=== PATIENT | male | born 1950 | race Caucasian/White ===

== ENCOUNTER → 2017-09-20 | Outpatient (CLI) | payer OTHER, BC ==
[~2017-09-20] MED LIST: ASPI-587 PO; BUTA1TAB46 PO; CETI10CA12 PO; DOXY100C2 PO; FLUT16SP22; LISINOPRIL PO; LOVA20TA2 PO; ONDA-42 SL; ORPH100T PO
--- NOTE | 2017-09-20 12:40 | Diagnostic Imaging Report ---
PROCEDURE: MR imaging left lower extremity without contrast. TECHNIQUE: Multiplanar, multisequence non contrast enhanced MR imaging of the left lower extremity was accomplished. INDICATION: Pain, unable to flex foot. FINDINGS: There are no prior studies available for comparison. The STIR sagittal series shows a severe but not complete tear of the midportion of the Achilles tendon. There is a roughly 2 cm area of abnormal signal with associated soft tissue edema in this area. The attachment of the Achilles tendon to the calcaneus seems undisturbed. There is generalized soft tissue edema about the ankle joint. The other major ligaments and tendons seem to be intact. There is no abnormal signal arising from the osseous structures to suggest bone edema or fracture. There is a fairly well-circumscribed 1.8 x 1.9 cm area of altered signal within the body of the calcaneus. This is of uncertain etiology but unlikely to be related to an acute injury. The talar dome is smooth and there is no sign of osteochondritis dissecans. IMPRESSION: 1. There is a severe but partial tear of the Achilles tendon. There is also generalized soft tissue edema about the tear and the ankle joint itself. 2. There is no acute abnormality identified otherwise. Dictated by: Dictated on workstation # [id number]
== END ==
LOC: RAD 07:03
PROVIDERS: ATTEND Nurse Practitioner Family
DX: S96.912A Strain of unspecified muscle and tendon at ankle and foot level, left foot, initial encounter (principal); W10.9XXA Fall (on) (from) unspecified stairs and steps, initial encounter

== ENCOUNTER → 2017-10-24 | Outpatient (CLI) | payer BC, OTHER ==
--- NOTE | 2017-10-24 10:02 | Diagnostic Imaging Report ---
PROCEDURE: US left lower extremity venous. TECHNIQUE: Multiple real-time grayscale images were obtained over the left lower extremity in various projections. Additional duplex Doppler and color Doppler images were also obtained. INDICATION: Left posterior tibial vein thrombus noted two weeks ago at an outside facility. Study is performed for followup. No prior studies are available for comparison. The left common femoral, superficial femoral and popliteal veins are widely patent. The thrombus is identified in the proximal and mid portion of the posterior tibial veins. Distally one posterior tibial vein is thrombosed and the other is patent. There appears to be thrombosis of the superficial vein as well at the mid calf. No fluid collections are seen. IMPRESSION: No evidence of femoral-popliteal DVT. There continues to be thrombus within the posterior tibial vein, as described. Dictated by: Dictated on workstation # [id number]
== END ==
LOC: RAD 07:29
PROVIDERS: ATTEND Nurse Practitioner Family
DX: I82.442 Acute embolism and thrombosis of left tibial vein (principal)

== ENCOUNTER 2018-04-05 05:34 | Outpatient (CLI) | payer BC ==
[~2018-04-05] VITALS: Ht 182.9 cm; Wt 106.6 kg
[2018-04-05] MEDS ORDERED: ASPI-999 PO (08:27)
[2018-04-05] MEDS ORDERED: SIMV20TA3 PO (08:27)
[2018-04-05] MEDS ORDERED: LISI-552 PO (08:27)
[2018-04-05] MEDS ORDERED: FENO45CA2 PO (08:27)
== END 2018-04-05 08:30 | disposition home or self-care (01) ==
LOC: PREOP 05:34
PROVIDERS: ATTEND Surgery
DX: Z01.818 Encounter for other preprocedural examination (principal)

== ENCOUNTER 2018-04-08 11:39 | Day surgery (SDC) | payer BC ==
[~2018-04-08] VITALS: Ht 182.9 cm; Wt 106.6 kg
[~2018-04-08 11:39] MED LIST changes: +ASPI-999 PO; +FENO45CA2 PO; +LISI-552 PO; +SIMV20TA3 PO
[2018-04-08] MEDS ORDERED: LACTATED RINGERS 1,000 ML IV ONE (12:14)
[2018-04-08 12:25] VITALS: BP 137/82
[2018-04-08] MEDS ORDERED: LACTATED RINGERS 1,000 ML IV STA (13:00)
[2018-04-08] MEDS ORDERED: MIDAZOLAM 2 MG/2 ML (VERSED) VIAL ONE (13:56)
[2018-04-08] MEDS ORDERED: PROPOFOL INJECTION 50 ML IV ONE (13:57)
[2018-04-08 15:30] VITALS: BP 117/66
--- NOTE | 2018-04-08 15:51 | Progress Note-Post Operative ---
Post-Operative Progess Note Surgeon (s)/Car Salter (s) Surgeon CARYL VARGAS DO Car Salter: KRISTY JenkinsII Pre-Operative Diagnosis Screening Colonoscopy, Lower abd pain Post-Operative Diagnosis Polyps Diverticula Int hemorrhoids Procedure & Operative Findings Date of Procedure 04/08/18 Procedure Performed/Findings Colon with snare Colon with hot bx Anesthesia Type IV sedation by DYER ASSISTANT Estimated Blood Loss Estimated blood loss (mL): none Specimens/Packing Specimens Removed 2 ascending colon polyp Transverse colon polyp CARYL VARGAS DO Apr 08, 2018 15:51
--- NOTE | 2018-04-08 15:52 | Endoscopy Discharge Instruct ---
Endo Procedure/Findings Findings 1.: Polyp 2.: Diverticulosis 3.: Internal Hemorrhoids Discharge Instructions - Activity: You might feel a little sleepy until tomorrow. This is due to the medicine you received to relax you. Until tomorrow, you should: NOT drive a car, operate machinery or power tools. NOT drink any alcoholic beverages. NOT make any important decisions or sign importortant papers. Do not return to work until tomorrow, unless otherwise instructed. Resume previous activities tomorrow. Diet: Start by taking liquids. If you tolerate liquids, advance to solid food. make an appointment for one week Notify Physician - If you experience excessive bleeding, unusual abdominal pain, fever, or chest pain, contact your doctor immediately. Follow-Up: - I have received and understand the above instructions and will call my doctor if I have any further questions. Patient Signature Date Nurse Signature Other (Relationship) CARYL VARGAS DO Apr 08, 2018 15:52
[2018-04-08 15:54] VITALS: BP 146/86
[2018-04-08 16:10] VITALS: BP 146/86
--- NOTE | 2018-04-08 16:15 | Anesthesia-General Post-Op ---
MAC Patient Condition Mental Status/LOC: Same as Preop Cardiovascular: Satisfactory Nausea/Vomiting: Absent Respiratory: Satisfactory Pain: Controlled Complications: Absent Post Op Complications Complications None Follow Up Care/Instructions Patient Instructions None needed. Anesthesiology Discharge Order Discharge Order Patient is doing well, no complaints, stable vital signs, no apparent adverse anesthesia problems. No complications reported per nursing. DIETER LEE CRNA Apr 08, 2018 16:15
--- NOTE | 2018-04-09 01:38 | OPERATIVE REPORT ---
DATE OF SERVICE: PREOPERATIVE DIAGNOSIS: Screening colonoscopy, lower abdominal pain. POSTOPERATIVE DIAGNOSES: 1. Colon polyps. 2. Diverticula. 3. Internal hemorrhoids. PROCEDURES: 1. Colonoscopy with snare polypectomy. 2. Colonoscopy with hot biopsy. SURGEON: Tae Abdul DO. HUMAN RESOURCES CLERK: viktoria Jenkins student 3. ANESTHESIA: IV sedation by CYLINDER HEAD ASSEMBLER. SPECIMENS: Two polyps in the ascending colon and one larger polyp in the transverse colon. BLOOD LOSS: None. FLUIDS: Per anesthesia. POSTOPERATIVE CONDITION: Stable. INDICATION FOR PROCEDURE: The patient is a 67-year-old male who said it has been a while that he had a colonoscopy and he has had some lower abdominal pain and needs a screening. FINDINGS: The patient has two polyps in the ascending colon and one polyp in transverse colon. He also has some diverticula and some internal hemorrhoids. PROCEDURE NOTE: After informed consent was obtained, the patient was brought to the endoscopy suite and placed in the bed in left lateral decubitus position. He was administered IV sedation by the CYLINDER HEAD ASSEMBLER who then monitored his vitals the entire time, heart rate, blood pressure and pulse ox and the scope was inserted. On the way in, he noted some diverticula took picture of this and then able to get all the way to cecum, took picture of appendiceal orifice, noted the ileocecal valve and then slowly withdrew the scope insufflating to look circumferentially at the young, looking at the cecum and then just outside the cecal cap in the ascending colon, saw two small polyps. I elected to get these with hot biopsies because they were flat. I was able to get them and then continued up the ascending colon to the hepatic flexure and then just into the transverse colon, saw a large polyp, elected to do a snare polypectomy to remove this en bloc. Able to remove this, suction this up. We sent to pathology. Continued down the transverse colon to the splenic flexure and then into the descending colon. The patient also had some diverticula on the right side and then again saw them in the descending colon and sigmoid colon. Continued down through the sigmoid colon into the rectum, retroflexed in the rectal vault, saw some minimal internal hemorrhoids, took a picture of this and then removed the scope. The patient tolerated the procedure. He was recovered in endoscopy. Job ID: [id number] DocumentID: [id number] Dictated Date: 04/08/2018 15:56:05 Pasteurizing Machine Operator Date: 04/09/2018 01:38:02 Dictated By: DO GEOVANNA PEREZ
== END 2018-04-08 16:10 | disposition home or self-care (01) ==
LOC: ENDO 11:39
PROVIDERS: ATTEND Surgery
DX: Z12.11 Encounter for screening for malignant neoplasm of colon (principal); D12.3 Benign neoplasm of transverse colon; K63.89 Other specified diseases of intestine; K57.30 Diverticulosis of large intestine without perforation or abscess without bleeding; K64.8 Other hemorrhoids; I10 Essential (primary) hypertension; E78.5 Hyperlipidemia, unspecified; Z86.73 Personal history of transient ischemic attack (TIA), and cerebral infarction without residual deficits; Z79.899 Other long term (current) drug therapy; Z79.82 Long term (current) use of aspirin

== ENCOUNTER 2021-07-02 04:57 | Emergency (ER) | payer BC ==
[~2021-07-02] VITALS: Ht 182.9 cm; Wt 106.6 kg
[~2021-07-02 04:57] MED LIST changes: -LISI-552 PO; +LISI20TA26 PO; +SIMV20TA26 PO; -SIMV20TA3 PO
--- NOTE | 2021-07-02 07:27 | ED Neck-Back Pain/Injury ---
General Chief Complaint: Head/Cervical Problems Stated Complaint: PAIN RT SHOULDER BLADE & NECK Nursing Triage Note: Pt arrives via POV from home for c/o right neck pain that radiates to the right upper back; onset three weeks but worsening over the last three days. Pt denies known injury or other causes. Pt ambulatory on arrival, denies incontinence. Source of Information: Patient, Spouse Exam Limitations: No Limitations History of Present Illness Date Seen by Provider: Jul 02, 2021 Time Seen by Provider: 07:00 Initial Comments Patient and his present to the ER by private conveyance with chief complaint of about 2 to 3 weeks of progressively worsening pain that has become unbearable in the last 2 to 3 days. He has not seen his primary care doctor yet. He did go to a chiropractor yesterday and did not feel he got a lot of relief. He is not on steroids. Has been using ibuprofen 400 mg every 6 hours and Tylenol 650 mg every 6 hours. He is not diabetic nor does he have any heart issues. His pain is in his right back at the mid level of the scapula and rad iates slightly to the right flank. His muscles are in spasm. He is not on muscle relaxants. He says he has had this in the past and had to spend the day in the hospital for pain management. He follows with Steven Ash MD. pain is better while he is up moving around working but when he sits down or lays still it is more noticeable keeps him from getting good sleep. No history of trauma. No history of imaging. He was referred in the past for this pain to a neurologist who worked him up and told him that he had carpal tunnel syndrome but no other spinal involvement. Allergies and Home Medications Allergies Coded Allergies: No Known Drug Allergies (Unverified , 04/05/18) Patient Home Medication List Home Medication List Reviewed: Yes Aspirin (Aspirin) 81 Mg Tab.chew, 81 MG PO DAILY, (Reported) Entered as Reported by: LINDSAY MORALES on 04/05/18826 Fenofibric Acid (Choline) (Fenofibric Acid) 45 Mg Capsule.dr, 45 MG PO DAILY, (Reported) Entered as Reported by: LINDSAY MORALES on 04/05/18826 Lisinopril (Lisinopril) 20 Mg Tablet, 20 MG PO DAILY, (Reported) Entered as Reported by: LINDSAY MORALES on 04/05/18826 Simvastatin (Simvastatin) 20 Mg Tablet, 20 MG PO DAILY, (Reported) Entered as Reported by: LINDSAY MORALES on 04/05/18826 Review of Systems Constitutional: No chills, No fever EENTM: No hearing loss, No ear pain Respiratory: No cough, No short of breath Cardiovascular: No chest pain, No edema Gastrointestinal: No abdominal pain, No nausea All Other Systems Reviewed Negative Unless Noted: Yes Past Hjkrsni-Cjergf-Taljme Hx Patient Social History Tobacco Use?: No Use of E-Cig and/or Vaping dev: No Substance use?: No Alcohol Use?: No Pt feels they are or have been: No Immunizations Up To Date Tetanus Booster (TDap): Less than 5yrs Influenza Vaccine Up-to-Date: Yes; Up-to-Date COVID19 Vaccine Stile Ripsaw Operator: Affine Seasonal Allergies Seasonal Allergies: Yes Past Medical History Appendectomy Pneumonia Currently Using CPAP: No Currently Using BIPAP: No High Cholesterol, Hypertension TIA Reproductive Disorders: No Sexually Transmitted Disease: No HIV/AIDS: No Tinnitis Loss of Vision: Denies Hearing Impairment: Denies Adverse Reaction/Blood Tranf: No Family Medical History Orthostatic hypotension 19 FATHER (FATHER FELL AT HOME AND 2 DAYS LATER) Physical Exam Vital Signs Vital Signs - First Documented 07/02/21 06:35 Temp 36.8 Pulse 75 Resp 18 B/P (MAP) 132/72 (92) Pulse Ox 98 O2 Delivery Room Air Capillary Refill : Less Than 3 Seconds Height, Weight, BMI Height: 6'0.00" Weight: 235lbs. 0.0oz. 106.568954oa; 31.00 BMI Method:Stated General Appearance: WD/WN, Mild Distress HEENT: PERRL/EOMI, Pharynx Normal, Moist Mucous Membranes Neck: Full Range of Motion, Normal Inspection Cardiovascular: Regular Rate, Rhythm, No Edema Respiratory: No Accessory Muscle Use, No Respiratory Distress Back: Normal Inspection, No Vertebral Tenderness, Muscle Spasm (Right trapezius and paraspinal muscles.), Other (Point tenderness at the level of T8-T9 paraspinal muscles about 2 to 3 cm lateral to the spine.) Extremity: Normal Capillary Refill, Normal Inspection Neurologic/Psychiatric: Alert, Oriented x3 Procedures/Interventions Progress Point tenderness injection for myofascitis on the right scapula around the level of T8. Half cc of half percent Marcaine without epinephrine mixed with 1 cc 40 mg/mL Depo-Medrol. We used alcohol to clean the site and Z track method to apply the medication through a 25-gauge 1-1/2 inch needle. We were not able to aspirate any blood back before injecting. Patient tolerated procedure well. Sterile bandage was applied Progress/Results/Core Measures Results/Orders My Orders Orders - ARNAV HERNANDEZ Methylprednisolone Acetate Inj (Depo-Med (07/02/21 07:30) Bupivacaine 0.5% Injection (Sensorcaine (07/02/21 07:30) Vital Signs/I&O 07/02/21 06:35 Temp 36.8 Pulse 75 Resp 18 B/P (MAP) 132/72 (92) Pulse Ox 98 O2 Delivery Room Air Blood Pressure Mean: 92 Progress Progress Note : Time: 07:24 Progress Note Toradol shot for immediate pain, will do a point tenderness injection for mild fasciitis with nerve impingement in his thoracic spine. Follow-up 1 to 2 weeks with primary care for physical therapy or chiropractic. Departure Impression Primary Impression: Myofascitis Additional Impression: Thoracic nerve root impingement Disposition: 01 HOME, SELF-CARE Condition: Stable Departure-Patient Inst. Decision time for Depature: 07:33 Referrals: STEVEN ASH MD (PCP/Family) Primary Care Physician Patient Instructions: Radiculopathy (DC) Add. Discharge Instructions: Your back pain is caused by inflammation impinging on the nerve. You should see improvement over the next week with the steroid. Use the cyclobenzaprine/Flexeril muscle relaxant every 8 hours as necessary. Will cause some drowsiness. Naproxen 1 tablet twice a day for the next 1 to 2 weeks until your pain goes away. Do not use ibuprofen and naproxen together as they are the same family of drug. You may continue to use Tylenol 650 mg every 6 hours as necessary for breakthrough pain. You may use topical creams such as icy hot, Biofreeze, Blue emu etc. Heat, massage, chiropractors and physical therapy all can be beneficial. If not seeing improvement in 1 to 2 weeks and follow-up with your primary care doctor for reevaluation. Promptly return to the ER if you experience loss of control of bowel or bladder, numbness or weakness or other worrisome symptoms. All discharge instructions reviewed with patient and/or family. Voiced understanding. Scripts Naproxen (Naprosyn) 500 Mg Tablet 500 MG PO BID for 14 Days, #30 TAB 0 Refills Prov: ARNAV HERNANDEZ 07/02/21 Cyclobenzaprine HCl (Cyclobenzaprine HCl) 10 Mg Tablet 10 MG PO Q8H PRN for SPASMS, #20 TAB 0 Refills Prov: ARNAV HERNANDEZ 07/02/21 Copy Copies To 1: STEVEN ASH MD, TITUS J Jul 02, 2021 07:27
[2021-07-02] MEDS ORDERED: BUPIVACAINE 0.5% 30 ML (SENSORCAINE) VIAL INJ ONE (07:30)
[2021-07-02] MEDS ORDERED: KETOROLAC 60 MG/2 ML VIAL IM ONE (07:30)
[2021-07-02] MEDS ORDERED: methylPREDNISolone 40 MG/ML (DEPO MEDROL) VIAL IM ONE (07:30)
[2021-07-02] MEDS ORDERED: NAPR-1071 PO (07:35)
[2021-07-02] MEDS ORDERED: CYCL10TA25 PO (07:35)
[2021-07-02 07:40] VITALS: BP 132/72
== END 2021-07-02 07:40 | disposition home or self-care (01) ==
LOC: EDUNIT# 04:57 → ER 05:02
DX: M60.9 Myositis, unspecified (principal); M54.14 Radiculopathy, thoracic region
CPT/HCPCS: 99284

== ENCOUNTER → 2021-07-28 | Outpatient (CLI) | payer BC ==
[~2021-07-28] MED LIST changes: +CYCL10TA25 PO; +NAPR-1071 PO
--- NOTE | 2021-07-28 17:01 | Diagnostic Imaging Report ---
INDICATION: Neck and chest pain. COMPARISON: 09/26/2014. EXAMINATION: Frontal and lateral views of the chest. FINDINGS: Clear lungs, bilaterally. The heart is normal. There is no pneumothorax but osseous structures are normal. IMPRESSION: Negative chest. Dictated by: Dictated on workstation # [id number]
--- NOTE | 2021-07-28 17:03 | Diagnostic Imaging Report ---
INDICATION: Thoracic pain. COMPARISON: Radiographs from the same date as well as from 09/26/2014. TECHNIQUE: Three radiographs of the thoracic spine dated July 28, 2021. FINDINGS: Grade 1 anterolisthesis of C4 on C5 is identified with no anterolisthesis or retrolisthesis within the thoracic spine, itself. Vertebral body heights within the thoracic spine are well maintained. Mild multilevel disc space height loss is noted without severe disc space height loss. Multilevel anterior osteophyte formation, greatest within the lower cervical spine. No acute fracture or dislocation. No suspicious radiopaque foreign body. No large-volume pleural effusion. IMPRESSION: 1. No acute osseous abnormality with mild to moderate multilevel degenerative changes. 2. Grade 1 anterolisthesis of C4 on C5 incidentally noted. Dictated by: Dictated on workstation # [id number]
== END ==
LOC: RAD 15:40
PROVIDERS: ATTEND Family Medicine
DX: M47.814 Spondylosis without myelopathy or radiculopathy, thoracic region (principal); M43.14 Spondylolisthesis, thoracic region; M54.2 Cervicalgia; R07.9 Chest pain, unspecified
CPT/HCPCS: 71046; 72072

== ENCOUNTER 2021-09-07 14:37 | Outpatient (RCR) | payer BC | END 2021-09-10 | PROVIDERS: ATTEND Family Medicine | DX: M79.604 Pain in right leg (principal); R10.31 Right lower quadrant pain ==

== ENCOUNTER → 2021-09-15 | Outpatient (CLI) | payer BC ==
--- NOTE | 2021-09-15 14:46 | Diagnostic Imaging Report ---
INDICATION: RT HIP AND GROIN PAIN. COMPARISON: None. FINDINGS: Two views of the right hip were obtained and show no fractures, dislocations, or other acute bony abnormalities. Joint spaces are well maintained throughout. The soft tissues appear unremarkable. No radiopaque foreign bodies are identified. IMPRESSION: Unremarkable radiographic exam of the right hip. Dictated by: Dictated on workstation # [id number]
--- NOTE | 2021-09-15 14:48 | Diagnostic Imaging Report ---
INDICATION: Fall. Back pain. COMPARISON: None FINDINGS: Frontal and lateral views of the lumbar spine were obtained. Alignment and vertebral heights are maintained. There is no fracture or destructive process. Moderate multilevel degenerative disease is noted in the lumbar spine. Limited views of the abdomen demonstrate nonobstructive bowel gas pattern. IMPRESSION: 1. No acute fracture or dislocation of the lumbar spine. 2. Moderate multilevel degenerative changes. Dictated by: Dictated on workstation # [id number]
== END ==
LOC: RAD 13:56
PROVIDERS: ATTEND Family Medicine
DX: M47.816 Spondylosis without myelopathy or radiculopathy, lumbar region (principal)
CPT/HCPCS: 72100; 73502

== ENCOUNTER 2021-10-06 09:52 | Outpatient (RCR) | payer BC | END 2021-10-11 | disposition home or self-care (01) | PROVIDERS: ATTEND Family Medicine | DX: M79.604 Pain in right leg (principal); R10.31 Right lower quadrant pain ==

== ENCOUNTER → 2021-10-20 | Outpatient (CLI) | payer BC | LOC: ORTHO 15:19 | PROVIDERS: ATTEND Orthopaedic Surgery | DX: M16.11 Unilateral primary osteoarthritis, right hip (principal) | CPT/HCPCS: 99203 ==

== ENCOUNTER → 2021-12-16 | Outpatient (CLI) | payer BC | LOC: ORTHO 10:59 | PROVIDERS: ATTEND Orthopaedic Surgery | DX: M25.561 Pain in right knee (principal); M25.562 Pain in left knee | CPT/HCPCS: 20610; G0463 ==

== ENCOUNTER → 2022-01-05 | Outpatient (CLI) | payer BC | LOC: ORTHO 14:34 | PROVIDERS: ATTEND Orthopaedic Surgery | DX: M16.11 Unilateral primary osteoarthritis, right hip (principal); M25.511 Pain in right shoulder; M25.512 Pain in left shoulder | CPT/HCPCS: 99213 ==

== ENCOUNTER → 2022-03-14 | Outpatient (CLI) | payer BC ==
--- NOTE | 2022-03-14 10:32 | Diagnostic Imaging Report ---
PROCEDURE: MRI lumbar spine. TECHNIQUE: Multiplanar, multisequence MRI of the lumbar spine was performed without contrast. INDICATION: Chronic back and right hip pain. COMPARISON: Correlation is made with lumbar radiographs of 09/15/2021. No prior MR. FINDINGS: The lumbar statures are within normal limits. There is a stable minute 1 mm degenerative anterolisthesis of L2 on L3. The remaining levels align normally. At the L2-L3 level, there is minimal mixed fatty and edematous Modic type I-type II endplate changes. The conus appears normal. No paravertebral mass, hemorrhage, or fluid collection. L1-L2: Mild anterior osteophyte/disc material results in no stenosis. L2-L3: Disc desiccation, bulge, endplate osteophytes, thickened ligamenta flava, and facet arthrosis contribute to moderate to severe canal stenosis with mild left and moderate right foraminal narrowing. L3-L4: There is thickened ligamenta flava and a left-sided small synovial facet cyst which remains within the thickened ligamenta flava. There is mild prominence of the dorsal epidural fat. The findings result in a mild to moderate degree of canal stenosis. There is mild left greater than right foraminal narrowing. L4-L5: Thickened ligamenta flava and facet arthrosis result in a mild canal stenosis. There is mild left foraminal narrowing. L5-S1: There is mild disc desiccation, bulge, and endplate osteophytes with mild left greater than right foraminal narrowing. No significant canal stenosis. IMPRESSION: Degenerative changes with multilevel canal and foraminal stenoses with stable trace grade 1 degenerative L2 on L3 anterolisthesis. No acute appearing bony pathology. Dictated by: Dictated on workstation # [id number]
== END | disposition still patient (30) ==
LOC: RAD 08:00
PROVIDERS: ATTEND Family Medicine
DX: M47.26 Other spondylosis with radiculopathy, lumbar region (principal); M48.061 Spinal stenosis, lumbar region without neurogenic claudication
CPT/HCPCS: 72148

== ENCOUNTER → 2022-04-20 | Outpatient (CLI) | payer BC ==
--- NOTE | 2022-04-20 15:34 | Diagnostic Imaging Report ---
KNEE, 3 VIEWS, BILATERAL INDICATION: Bilateral knee pain COMPARISON: None available. TECHNIQUE: 3 views of each knee for total of 6 views. FINDINGS: Severe joint space narrowing in the medial compartment on both sides. Tricompartmental osteophytes are present on both sides as well. No knee joint effusion or mineralized joint bodies. No fracture or concerning focal osseous lesion. IMPRESSION: Severe osteoarthritis of both knees. Dictated by: Dictated on workstation # [id number]
== END ==
LOC: RAD 08:20
PROVIDERS: ATTEND Family Medicine
DX: M17.0 Bilateral primary osteoarthritis of knee (principal)

== ENCOUNTER → 2022-06-22 | Outpatient (CLI) | payer BC, MEDICARE ==
--- NOTE | 2022-06-22 15:24 | Diagnostic Imaging Report ---
INDICATION: Bilateral knee pain. TECHNIQUE: AP and lateral views of both knees are obtained. FINDINGS: No fracture or acute bony abnormality is seen. There is prominent medial joint space narrowing of both knees with osteophyte formation. There is milder lateral joint space narrowing with osteophyte formation. There is prominent patellofemoral spurring. There is no overt joint effusion. IMPRESSION: Tricompartmental osteoarthritic changes of both knees with no acute abnormality. These findings appeared similar to 04/20/2022. Dictated by: Dictated on workstation # [id number]
== END ==
LOC: ORTHO 08:51
PROVIDERS: ATTEND Orthopaedic Surgery
DX: M17.0 Bilateral primary osteoarthritis of knee (principal)
CPT/HCPCS: 73560; G0463; 99213

== ENCOUNTER → 2022-07-06 | Outpatient (CLI) | payer BC, MEDICARE | LOC: ORTHO 13:10 | PROVIDERS: ATTEND Orthopaedic Surgery | DX: M17.0 Bilateral primary osteoarthritis of knee (principal); I10 Essential (primary) hypertension; D12.3 Benign neoplasm of transverse colon; N40.1 Benign prostatic hyperplasia with lower urinary tract symptoms; K57.90 Diverticulosis of intestine, part unspecified, without perforation or abscess without bleeding; C18.9 Malignant neoplasm of colon, unspecified; M16.12 Unilateral primary osteoarthritis, left hip | CPT/HCPCS: 20610 ==